=== PATIENT | female | born 1975 | race Caucasian/White ===

== ENCOUNTER 2016-11-26 00:38 | Emergency (ER) | payer OTHER ==
[~2016-11-26] VITALS: Ht 160 cm; Wt 77.3 kg
[2016-11-26 00:54] VITALS: BP 130/85; PULSE 85; RESP 18; O2SAT 96
--- NOTE | 2016-11-26 01:38 | ED.REPORT ---
HPI-Dyspnea / Wheezing Date of Service Nov 26, 2016 ED Provider: Tim Avina MD Pt is a 41 year old female with a history of asthma who presents to the ED complaining of SOB onset tonight. She c/o associated shaking. Pt reports that she has been "sick" with a respiratory infection for 1 month. Per pt, she is currently on 2 different courses of antibiotics, and she is on the 3rd day of her 2nd round of Prednisone at 60 mg. She states she was doing yard work today, then started experiencing her SOB tonight without relief from her inhaler. Nursing Notes Stated Complaint: HARD TO BREATH Chief Complaint: Respiratory Complaints Nursing Notes Reviewed: Yes Allergies: Coded Allergies: doxycycline (Verified Allergy, Unknown, 11/26/16) Scheduled PRN Albuterol Neb Soln (Albuterol Neb Soln) 2.5 Mg/3 Ml Vial.neb 2.5 MG INHALATION Q4H PRN PRN For Wheezing General Time Seen by MD: 01:33 Chief Complaint Shortness of breath Hx Obtained From: Patient Arrived By: Walk-in Sudden in Onset?: No Onset Occurred: Just prior to arrival Symptom Duration: Duration unknown Severity: Current: No pain currently Severity: Maximum: No pain Recent Healthcare: Recent doctor visit Similar Sx Previous: No Past Medical History Past Medical History Thyroidism Reports: Asthma, Denies: Diabetes mellitus, Hypertension Past Surgical History Denies Smoking History Unknown if Ever Smoker Social History Alcohol Use: "Social" Drug Use: Denies drug use Other Social History: Good social support Ambulatory Status Independent Review of Systems Constitutional: Denies: Fever Respiratory: Reports: Shortness of breath, Denies: Dyspnea on exertion, Non-productive cough Complete sys rev & neg: except as marked. Neurologic: Reports: Shaking Physical Exam Initial Vital Signs Vital Signs (First) Date Time Temp Pulse Resp B/P Pulse Ox O2 Delivery O2 Flow Rate FiO2 11/26/16 00:54 36.2 85 18 130/85 96 Room Air Initial VS: Reviewed, Vital signs normal Head / Eyes: Atraumatic, Normocephalic Abdomen / GI: Soft, Non-tender Extremities: Vascular intact, Neuro intact Skin: Warm, Dry, No cyanosis Psychiatric: Mood/affect normal, Behavior normal General/Constitutional: Awake, Alert No significant distress Neck: Atraumatic, Full range of motion Respiratory / Chest: Atraumatic, Breath sounds NL, Breath sounds = bilat, No respiratory distress, No wheezing No focal changes in breath sounds. Distant breath sounds. Cardiovascular: Heart rate NL, Regular rhythm, Heart sounds NL Neurologic: Oriented X3, Speech NL Little jittery from her home abuterol. Re-Eval/Medical Decision Med Decision/Clinical Course 41-year-old female with a history of asthma presents with considerable wheezing. She has been seen multiple times prior to this and is currently on albuterol inhaler and prednisone. She has been overusing the inhaler. She is quite tremulous at the present time. She currently is wheeze free. Arrangements were made for her to get a nebulizer tomorrow for home use. She was given an additional prepack of premixed ampules and a prescription for 20 of them. Source of Hx: Old records Re-Evaluation/Progress : Time of Eval: 02:02 Re-Evaluation/Progress Note: Pt rechecked. Informed pt of plan for discharge. Pt understands and agrees with plan for discharge. F/U instructions and RTER warnings given. All questions addressed. Counseled Regarding: Diagnosis, Need for follow-up, When/why to return to ED Discharge & Departure Impression: Primary Impression: Asthma Asthma severity: severe persistent Asthma complication type: with acute exacerbation Qualified Code: J45.51 - Severe persistent asthma with (acute) exacerbation Disposition: Home Discharge Condition All VS Reviewed: Yes Condition: Stable Patient Instructions: Moderate and Severe Persistent Asthma (ED) Additional Instructions: Albuterol by nebulizer every 4 hours as needed. A prescription was written for your own machine. Please call the company in the morning to make arrangements for this.. Meanwhile, use your prescription for #30 premixed vials of albuterol to use every 4 hours with your boyfriend's machine.. Follow-up with your regular doctor for further evaluation and treatment, and for further refills. Patient oral prednisone. Referrals: Yvonne Man (PCP) [place] Attestation Portions of this note were transcribed by Alana Alvarado. I, Dr. Avina personally performed the history, physical exam and medical decision-making; I reviewed and confirmed the accuracy of the information in the transcribed note. Signed by: Pedro Coy, 11/26/16. copies to: Yvonne Man Howard L MD Nov 26, 2016 01:38 Alana Acosta Nov 26, 2016 01:45
[2016-11-26] MEDS ORDERED: _Albuterol 2.5 mg/3 mL Neb NEB PRN (01:55)
[2016-11-26] MEDS ORDERED: ALBU2.5V4 INHALATION (01:57)
[2016-11-26 02:17] VITALS: BP 128/80; PULSE 82; RESP 18; O2SAT 97
== END 2016-11-26 02:18 | disposition home or self-care (01) ==
LOC: SED 00:38
DX: J45.51 Severe persistent asthma with (acute) exacerbation (principal); Z87.09 Personal history of other diseases of the respiratory system; E03.9 Hypothyroidism, unspecified; Z88.1 Allergy status to other antibiotic agents